=== PATIENT | male | born 1965 | race Caucasian/White ===

== ENCOUNTER 2024-02-08 18:03 | Inpatient (IN) | payer BC, SELFPAY ==
[2024-02-08 11:49] VITALS: BP 130/97
[2024-02-08] MEDS: DILAUDID 1 MG IV ×4 (12:31→19:22)
[2024-02-08] MEDS: NSS 1000 IV ×2 (12:31→16:49)
[2024-02-08 12:38] VITALS: BMI 45.6
[2024-02-08] MEDS: ZOFRAN 4 MG IV ×2 (12:48→16:57)
[2024-02-08 12:49] LABS: % Basophils 0.3 % (0-2); % Immature Granulocytes 0.7 % (0-0.5); % Monocytes 7.4 % (1.7-9.3); % Neutrophils 87.6 % (42.2-75.2); Absolute Basophils 0.1 10^3/uL (0-0.2); Absolute Immature Granulocytes 0.2 10^3/uL (0-0.05); Absolute Lymphocytes 1.2 10^3/uL (1.2-3.4); Absolute Monocytes 2.2 10^3/uL (0.1-0.6); Absolute Neutrophils 25.5 10^3/uL (1.4-6.5); Hematocrit 54.5 % (39.0-52.0); Hemoglobin 18.7 g/dL (13.0-18.0); Mean Corp Hgb Conc. 34.3 g/dL (33.0-37.0); Mean Corpuscular Hgb 26.5 pg (27.0-31.0); Mean Corpuscular Volume 77.3 fL (80.0-94.0); Mean Platelet Volume 9.4 fL (7.4-10.4); Nucleated Red Blood Cells % 0 % (-); Platelet Count 277 10^3/uL (130-400); Red Blood Cell Count 7.05 10^6/uL (4.70-6.10); Red Cell Dist. Width 15.1 % (11.5-14.5); White Blood Cell Count 29.1 10^3/uL (4.8-10.8)
[2024-02-08 13:07] LABS: ALT (SGPT) 18 U/L (0-50); AST (SGOT) 33 U/L (17-59); Albumin 4.6 g/dl (3.5-5.0); Alkaline Phosphatase 84 U/L (38-126); Blood Urea Nitrogen 22 mg/dl (9-20); Calcium 10.2 mg/dl (8.4-10.2); Carbon Dioxide 22 mmol/L (22-30); Chloride 98 mmol/L (98-107); Estimated Creatinine Clearance 105 ml/min; Glucose 189 mg/dl (70-99); Potassium 4.6 mmol/L (3.5-5.1); Sodium 131 mmol/L (135-145); Total Bilirubin 4.1 mg/dl (0.2-1.3); eGFR > 60.00
--- NOTE | 2024-02-08 13:08 | ED.GENMED ---
History of Present Illness
General
Chief Complaint: Abdominal Symptoms
Source: patient and spouse
Exam Limitations: none
Time Seen by Provider: 02/08/24 12:14
Nursing documentation reviewed up to this point in time: agreed with
Travel History
Have you had any contact with someone who has COVID-19?: No
Do you have any symptoms of coronavirus? Fever > 100 degrees, chills, cough, shortness of breath, sore throat, loss of taste or smell, muscle aches, or headache?: No
History of Present Illness
History of Present Illness:
59 yo male with h/o Migraines, NIDDM, presents with severe pain right anterior mid to lower right ribs he states started 2 days ago from frequent vomiting. Has been vomiting 4-5 times daily 2 and 3 days ago, last emesis was yesterday. Denies feeling
nauseous now. Has been unable to sleep due to the rib pain. Took Ibuprofen 800 mg 8 a.m. No relief.
Denies fever/chills, CP, SOB, abdominal pain.
Past History
Past History
ED Past Medical History: HTN and NIDDM
ED Past Surgical History: None
Social History
Tobacco: Smoker
Alcohol: None
Personal:
Living: with family
Employment: Not employed
Family History
Family History: CAD (dad @ 52. )
Review of Systems
Review of Systems
Allergies reviewed?: Yes
All Other Systems: ROS reviewed and negative except as documented in HPI and ROS
Constitutional: Denies fever or chills
Respiratory: Denies cough or trouble breathing
Cardiac: Denies chest pain
ABD/GI: Reports vomiting; Denies abdominal pain, diarrhea, constipated, bloody stools or black stools
: Denies dysuria, frequency or difficulty voiding
Musculoskeletal: Reports other (pain anterior right mid to lower ribs)
Skin: Reports no symptoms
Neurological: Reports no symptoms
Phy Exam
Physical Exam
Physical Exam:
GENERAL: Moderate distress due to rib pain, sitting on edge of bed leaning forward hands on knees. A&Ox3.
CONSTITUTIONAL: Afebrile.
EYES: Clear, conjunctivae normal
RESPIRATORY: Regular respirations, nonlabored, lungs clear.
CARDIOVASCULAR: Regular rate and rhythm, no murmurs, no rubs.
GI: Soft, nontender, normal BS
MUSCULOSKELETAL: Tender right milan-lateral mid to lower ribs. Moves with ease. Well perfused.
SKIN: Warm, dry, pink
PSYCH: Anxious mood and affect. Well kept, interactive and appropriate
NEUROLOGIC: Awake, alert and oriented. No focal neurological deficits
Course
Orders/Labs/Results
Orders:
Orders
02/08/24 12:20
Ribs, Right 3 View W/PA Chest [CR Ribs-right 3 Vw W/pa Chest*] Urgent
Comment:
Reason For Exam: pain mid to lower anterior ribs after vomiting
02/08/24 12:21
0.9% Sodium Chloride 1000 ml [Nss] 1,000 ml IV BOLUS
Ondansetron Injectable [Zofran] 4 mg IV NOW STA
02/08/24 12:22
Electrocardiogram (*1) Urgent
Reason for Study: QTc Monitoring
EKG- Treatment ONCE
HYDROmorphone [Dilaudid] 1 mg IV NOW STA
02/08/24 12:28
Complete Blood Count/With Diff Urgent
Comprehensive Metabolic Panel Urgent
02/08/24 14:15
HYDROmorphone [Dilaudid] 1 mg IV NOW STA
Lidocaine [Lidocaine 4% Patch] 1 patch TOPICAL NOW STA
02/08/24 14:22
CT Abd/pelvis W Iv Cont Urgent
Comment:
Reason For Exam: significant RUQ/right lower chest pain WBC 29.1
02/08/24 Dinner
NPO
Allow oral meds: Yes
Allow clear liquids: No
NPO with Ice Chips: No
02/08/24 15:27
D-Dimer Urgent
02/08/24 15:53
SURGICAL CONSULT Urgent
Consulting Provider: David Iverson
Was physician already notified: Yes
Reason for consult: acute cholecystitis
02/08/24 16:16
Piperacillin/Tazo 3.375 Gram [Zosyn] 3.375 gram in 50 ml IV NOW
02/08/24 16:30
0.9% Sodium Chloride 1000 ml [Nss] 1,000 ml IV 125 mls/hr
02/08/24 16:50
HYDROmorphone [Dilaudid] 1 mg IV NOW STA
Ondansetron Injectable [Zofran] 4 mg IV NOW STA
02/08/24 17:52
Admit/Transfer Patient As Directed
Co-Sign Provider:
Level of Care: Inpatient admission
Assign to:: Medical/Surgical
Physician / Group: Manisha Malin - hospitalists
Diagnosis: acute cholecystitis
Reason for Hospitalization: acute cholecystitis - IVF, IV antibiotics, surgery
Expected length of stay greater than two midnights?: Yes
ELOS- Estimated Length of Stay in days: 3
I certify the patient meets the requirements for IP care: Yes
02/08/24 17:54
Code Status As Directed
Resuscitation Status: Full Code
02/08/24 19:47
Acetaminophen [Tylenol] 650 mg PO Q4HPRN PRN
Bisacodyl [Dulcolax] 10 mg RECTAL [id number] PRN
Dextrose 50%-Water [Dextrose 50% Syringe] 12.5 grams IV [id number] PRN
Docusate W/Senna [Senokot-S] 1 tablet PO BIDPRN PRN
Glucagon [GlucaGen] 1 mg IM PRN PRN
HYDROmorphone [Dilaudid] 0.5 mg IV Q4HPRN PRN
Ondansetron Injectable [Zofran] 4 mg IV Q6HPRN PRN
Oxycodone [Roxicodone] 5 mg PO Q4HPRN PRN
Polyethylene Glycol Powder [Miralax] 17 grams PO DAILYPRN PRN
02/08/24 19:47
Activity As Directed
Activity Level: As Tolerated
Bedside Glucose Monitoring As Directed
Frequency: AC&HS
Comment: Change to q6h if pt on TPN, tube feeding or not eating
Pneumatic Compression Sleeves As Directed
Type: Knee high
Vital Signs As Directed
Frequency: Per unit guidelines
DX Deep Vein Thrombosis Video Routine
02/08/24 22:00
Trazodone [Desyrel] 150 mg PO HS
02/09/24 06:00
Complete Blood Count/With Diff IN AM
Comprehensive Metabolic Panel IN AM
Glycohemoglobin (HgbA1c) IN AM
02/09/24 07:30
Insulin Aspart Corrective Low [Novolog Flexpen-Low Resistance] See Protocol SC AC
02/09/24 08:00
Escitalopram Oxalate [Lexapro] 20 mg PO DAILY
cariprazine [Vraylar] 1.5 mg PO DAILY
02/09/24 13:00
Amphet Asp/Amphet/D-Amphet [Adderall] 7.5 mg PO DAILY@1300
02/10/24 06:00
Complete Blood Count/With Diff IN AM
Comprehensive Metabolic Panel IN AM
Abnormal Lab Results
02/08/24 02/08/24
12:28 15:27
WBC 29.1 H 10^3/uL
(4.8-10.8)
RBC 7.05 H 10^6/uL
(4.70-6.10)
Hgb 18.7 H g/dL
(13.0-18.0)
Hct 54.5 H %
(39.0-52.0)
MCV 77.3 L fL
(80.0-94.0)
MCH 26.5 L pg
(27.0-31.0)
RDW 15.1 H %
(11.5-14.5)
Abs Immat Gran (auto) 0.2 H 10^3/uL
(0-0.05)
Absolute Neuts (auto) 25.5 H 10^3/uL
(1.4-6.5)
Absolute Monos (auto) 2.2 H 10^3/uL
(0.1-0.6)
Immature Gran % 0.7 H %
(0-0.5)
Neutrophils % 87.6 H %
(42.2-75.2)
Lymphocytes % 4.0 L %
(20.5-51.1)
D-Dimer 0.53 H ug/mlFEU
(0.00-0.50)
Sodium 131 L mmol/L
(135-145)
BUN 22 H mg/dl
(9-20)
Glucose 189 H mg/dl
(70-99)
Total Bilirubin 4.1 H mg/dl
(0.2-1.3)
02/08/24 12:28
02/08/24 12:28
Vital Signs
Initial and Last Documented VS:
Initial Vital Signs
Temp Pulse Resp BP Pulse Ox
98.0 F 124 20 130/97 95
02/08/24 11:49 02/08/24 11:49 02/08/24 11:49 02/08/24 11:49 02/08/24 11:49
Last Documented Vital Signs
Temp Pulse Resp BP Pulse Ox
98.2 F 124 18 105/67 2
02/08/24 19:45 02/08/24 19:45 02/08/24 19:45 02/08/24 19:45 02/08/24 19:45
Volcanologist consulted with Physician
Volcanologist consulted with physician?: Yes
Name of Physician Consulted: Paul
MDM/Problems Addressed
Differential Diagnosis Includes:
Rib sprain/fracture
Viral GI illness, cholecystitis
MDM/Problems Addressed:
59 yo male with h/o Migraines, NIDDM, presents with severe pain right anterior mid to lower right ribs he states started 2 days ago from frequent vomiting. Has been vomiting 4-5 times daily 2 and 3 days ago, last emesis was yesterday. Denies feeling
nauseous now. Has been unable to sleep due to the rib pain. Took Ibuprofen 800 mg 8 a.m. No relief.
Denies fever/chills, CP, SOB, abdominal pain.
Moderate distress with rib pain\\
EKG: Sinus tachycardia No Q-T prolongation
1:14 PM
CBC: WBC 29.1 other abnormalities are consistent with hemoconcentration partially from dehydration. IV fluids infusing
CMP: Bilirubin 4.1. Glucose 29, BUN 22
2 PM
Patient remains in significant right side rib/upper abdominal pain. Dr. Miller and to evaluate
CXR: no obvious rib fracture or other abnormality
With clear CXR and significant Leukocytosis, US cancelled, ordered CT abd/pelvis
3:[address] abdomen pelvis radiology report reviewed: IMPRESSION:
1. CT findings questionable for cholelithiasis and acute cholecystitis in the appropriate clinical context. Consider further evaluation with dedicated ultrasound.
Hospitalist notified of admission with texting going to general surgery also
and pt informed
*Pulse Oximetry
Patient hypoxic: no
Comment: 96% RA
*Critical Care Note
Total Time (30-74mins, 75-104mins- exclusive of procedures): Not Applicable
ED Attending Note
-
Portions of this chart may have been created with voice recognition software.� Occasional wrong word or��sound alike� substitutions may have occurred due to the inherent limitations of voice recognition software.
Discharge Plan
Departure
Patient Disposition: Admit
Date of Disposition: 02/08/24
Time of Disposition: 15:50
Admit to: Med/Surg
Presentation/result/management discussed w/ accepting MD/DO: Hospitalist
Condition: Fair
Discharge Problem:
Acute cholecystitis, Diabetes mellitus, insulin dependent (IDDM), controlled
Interventions
Interventions:
*Risk Screen - Suicide Last Done: 02/08/24 19:49
*General Assessment Last Done: 02/08/24 12:44
*Neglect/Abuse Screening Last Done: 02/08/24 12:44
ED- Fall Risk Assessment Last Done: 02/08/24 12:45
*ED COVID-19 Vaccine History Last Done: 02/08/24 19:49
*Nursing Disposition Last Done: 02/08/24 19:38
NT-Amifab-Uatrbmdhqu Assessment Last Done: 02/08/24 12:46
Discharge Date and Time
Discharge Date/Time: 02/08/24 19:38
[2024-02-08] MEDS: LIDOCAINE 4% PATCH 1 PATCH TOPICAL (14:20)
[2024-02-08 15:45] LABS: D-Dimer 0.53 ug/mlFEU (0.00-0.50)
--- NOTE | 2024-02-08 16:16 | CON.GS ---
Addendum entered and electronically signed by David Iverson MD 02/09/24 08:20:
I saw and examined the patient independently.
The Bulb Sorter's note was reviewed and I agree with the note, assessment and plan except where noted below.
Comment: This is a 59-year-old male with history of diabetes, who presents with nausea vomiting which began Saturday into as well as a right upper quadrant abdominal pain. CT scan imaging concerning for acute cholecystitis. He does have
mildly elevated LFTs as well. The patient denies Fever, Chest Pain, Shortness Of Breath, changes in urinary and bowel habits, unintentional weight loss, jaundice, icterus, acolic stools.
N.p.o., IV fluids, IV Zosyn.
Will plan for laparoscopic cholecystectomy and cholangiogram in the OR today.
Risks/Benefits/Alternatives, expected postoperative course and possible complications (bleeding, infection, injury to surrounding structures, acute/chronic pain) discussed at length. Patient wishes to proceed with surgery. All questions answered.
Consent obtained.
I spent roughly 60 minutes in total for the care of this patient today including direct patient care and counseling, reviewing labs, imaging, coordination of care, as well as documentation.
Addendum entered and electronically signed by JEFFERY Smith 02/08/24 16:32:
...
Original Note:
Consultation
-
Date/Time Consultation Requested: 02/08/24 2093
Requesting Provider: Day
Performing Provider: Manuel Iverson
Reason for Consultation: acute cholecystitis
Medical History
-
Chief Complaint: nausea and vomiting
History of Present Illness:
59 yo male with h/o NIDDM and HTN who presents with nausea and vomiting which began Saturday into followed by abdominal pain in the RUQ across the epigastric area. He is overall a poor historian, at bedside to assist with history. He
denies fevers but does note he has had chills and sweats. He has been unable to keep food down and feels quite thirsty. He notes no prior episodes of pain similar to this. He is unable to recall what he ate prior to symptoms. He is restless and
notes that his pain is somewhat relieved by IV analgesics, but he is unable to find a comfortable position.
Past Medical History
Past Medical History: HTN, NIDDM and Other (neuropathy)
Past Surgical History: Other (rhinoplasty)
Social History
Tobacco: Vaping
Alcohol: None
Personal:
Living: With Family
Family History
Family History: Reviewed & Not Pertinent
Allergies / Home Medications
Allergy/AdvReac Type Severity Reaction Status Date / Time
No Known Allergies Allergy Unverified 02/08/24 11:49
�Medication �Instructions �Recorded �Confirmed �Type
amlodipine 5 mg tablet 5 mg PO DAILY 07/03/20 07/03/20 History
dextroamphetamine-amphetamine 20 22 mg PO DAILY 07/03/20 07/03/20 History
mg tablet (Adderall)
escitalopram oxalate 20 mg tablet 20 mg PO DAILY 07/03/20 07/03/20 History
gabapentin 300 mg capsule 1,800 mg PO DAILY 07/03/20 07/03/20 History
metformin 1,000 mg tablet 1,000 mg PO BID 07/03/20 07/03/20 History
trazodone 100 mg tablet 100 mg PO .NIGHTLY 07/03/20 07/03/20 History
Review of Systems
-
History Source: Patient and Family
All other systems: Negative unless noted
A 10 point review of systems was completed, and was negative except as per HPI.
Physical Exam
Vital Signs
Temp Pulse Resp BP Pulse Ox
98.0 F 124 20 130/97 95
02/08/24 11:49 02/08/24 11:49 02/08/24 11:49 02/08/24 11:49 02/08/24 11:49
02/07/24 02/08/24 02/09/24
06:59 06:59 06:59
Actual Weight 130 kg
Body Mass Index (BMI) 45.6
Lab Results
02/08/24 12:28
02/08/24 12:28
WBC 29.1 10^3/uL (4.8-10.8) H 02/08/24 12:28
Hgb 18.7 g/dL (13.0-18.0) H 02/08/24 12:28
Hct 54.5 % (39.0-52.0) H 02/08/24 12:28
Plt Count 277 10^3/uL (130-400) 02/08/24 12:
Abs Immat Gran (auto) 0.2 10^3/uL (0-0.05) H 02/08/24 12:28
Neutrophils % 87.6 % (42.2-75.2) H 02/08/24 12:28
Physical Exam
General: Pain
HEENT: Negative Moist Mucous Membranes
Respiratory: Non Labored Respirations
GI: Soft, Non Distended and Tender (RUQ tender to deep palpation)
Skin: Warm
Neuro: Awake, Alert and AO x 3
Psych: Calm
Assessment / Plan
-
59 yo diabetic male presenting with 2-3 days of RUQ pain with nausea and vomiting. Significant leukocytosis. Bilirubin elevated. Labs overall consistent with dehydration. Tachycardic but afebrile with stable BP. CT imaging reviewed and in
conjunction with exam is consistent with developing acute calculous cholecystitis.
--Keep NPO
--Start IV Zosyn
--IVF for hydration
--Tentative plan for OR in AM vs later today pending patient course
--Pain control/Antiemetics prn
--Being admitted to medicine service, diabetic management as per primary team
Case reviewed and discussed with Dr. Iverson
[2024-02-08] MEDS: ZOSYN 50 IV ×2 (16:47→22:10)
--- NOTE | 2024-02-08 17:39 | HPS.HSE ---
Family Physician
-
Family Physician: Andrea Beck
Chief Complaint
-
abd pain
History of Present Illness
59 y/o M hx of HTN, NIDDM presents to ER for n/v. He reports symptoms began Saturday into . Later he developed RUQ pain radiating across epigastric area. No fevers but noted chills/sweats. Reports poor appetite, unable to keep food down. He
reports thirst. No prior similar episodes. No chest pain, no SOB. No other complaints
In ER, unable to find comfortable position, received IV pain meds with some relief.
Medical History
Past Medical History
Past Medical History: Reports Other (HTN, NIDDM)
Past Surgical History: Reports Other (rhinoplasty)
Social History
Tobacco: Vaping
Alcohol: None
Drug: None
Personal:
Living: With Family
Family History
Family History: Not pertinent
Allergies / Home Medications
Allergies reflects when Allergies were last updated in [facility].
Home Medications with original date entered in [facility]
Allergy/Medication List:
Allergies
Allergy/AdvReac Type Severity Reaction Status Date / Time
No Known Allergies Allergy Unverified 02/08/24 11:49
Home Medications
escitalopram oxalate 20 mg tablet 20 mg PO DAILY 07/03/20
gabapentin 300 mg capsule 300 mg PO TID 07/03/20
metformin 1,000 mg tablet 1,000 mg PO BID 07/03/20
cariprazine 1.5 mg capsule (Vraylar) 1.5 mg PO DAILY 02/08/24
dextroamphetamine-amphetamine 15 mg tablet 7.5 mg PO DAILY@1300 02/08/24
dextroamphetamine-amphetamine 15 mg tablet 15 mg PO DAILY 02/08/24
glimepiride 2 mg tablet 2 mg PO DAILY 02/08/24
ibuprofen 200 mg tablet (Advil) 600 mg PO TIDPRN PRN mild pain 02/08/24
trazodone 150 mg tablet 150 mg PO HS 02/08/24
Review of Systems
-
A 12 point ROS was completed and negative except as noted: Yes
Physical Exam
Vital Signs
Vital Signs
Temp Pulse Resp BP Pulse Ox
98.0 F 124 20 130/97 95
02/08/24 11:49 02/08/24 11:49 02/08/24 11:49 02/08/24 11:49 02/08/24 11:49
Physical Exam
General: Appears in Distress and Pain
HEENT: NormoCephalic and Anicteric
Respiratory: Clear; No Wheezes or Rales
Cardiac: S1/S2 and Regular Rhythm
GI: Other (RUQ tenderness on deep palpation. no guarding)
Neuro: AO x 3
Hematologic/Lymphatic: No Lymphadenopathy
Psych: Calm
Laboratory Results
-
02/08/24 12:28
02/08/24 12:28
Laboratory Results
Total Bilirubin 4.1 mg/dl (0.2-1.3) H 02/08/24 12:28
AST 33 U/L (17-59) 02/08/24 12:28
ALT 18 U/L (0-50) 02/08/24 12:28
Alkaline Phosphatase 84 U/L (38-126) 02/08/24 12:28
Data Reviewed
-
CT Scan: Report Reviewed by me
Lab Data: Labs Reviewed by me
Impression/Plan
-
Assessment:
Early sepsis (tachycardia, leukocytosis) POA
Acute calculous cholecystitis
- CT: cholelithiasis and acute cholecystitis
- NPO/IVF
- IV Zosyn
- OR, tonight vs tomorrow per GS
- pain control, anti-emetics
NIDDM with neuropathy
- hold Metformin, Glimepiride
- resume Gabapentin post-op
- continue SSI
- check A1c
Hx of headaches (migraines)
ADD
Depression
Insomnia
- continue Lexapro/Trazodone
- continue Dextroamphetamine/amphetamine combo
- continue Vraylar
DVT ppx: SCDs
Code: Full
[2024-02-08 19:10] VITALS: BP 111/79
[2024-02-08 19:11] VITALS: BP 111/79
[2024-02-08 19:25] LABS: Glucose - Point of Care 168 mg/dl (70-99)
[2024-02-08 19:45] VITALS: BP 105/67
[2024-02-08 19:45] LABS: Urine Albumin 1+ (Neg - Trace); Urine Bilirubin 1+ (Negative); Urine Character Clear (Clear); Urine Color Brown; Urine Glucose Negative (Negative); Urine Ketone Trace (Negative); Urine Leukocyte Trace (Negative); Urine Nitrite Positive (Negative); Urine Occult Blood Negative (Negative); Urine Specific Gravity 1.015 (<1.030); Urine Urobilinogen 3+ (Neg - 1+)
[2024-02-08 19:57] LABS: Urine Red Blood Cell None Seen /HPF (0-2)
[2024-02-08 19:58] LABS: Urine White Cell 0-2 /HPF (0-5)
--- NOTE | 2024-02-08 22:15 | PTCARENOTE ---
pt new admit approx 19:45, lethargic,sleepy but arouses to loud verbal stimuli, IF infusing via L/f/a, spouse at bedside able to assist with admission, pt oriented to unit .
--- NOTE | 2024-02-08 22:17 | PTCARENOTE ---
pt sedated from meds administrated in ER, trazodone held , [id number], pt sleeping soundly.
[2024-02-08] MEDS: DILAUDID 0.5 MG IV (22:41)
[2024-02-08 22:47] LABS: Glucose - Point of Care 136 mg/dl (70-99)
[2024-02-08 23:00] VITALS: BP 128/84
[2024-02-08] MEDS: DESYREL 150 MG PO (23:00)
[2024-02-09] VITALS (35 sets, daily range): BP systolic 35–124; BP diastolic 49–94; BMI 34.9
[2024-02-09 00:13] LABS: Glucose - Point of Care 153 mg/dl (70-99)
[2024-02-09] MEDS: ROXICODONE 5 MG PO ×3 (00:43→16:36)
[2024-02-09] MEDS: NSS 1000 IV ×5 (00:49→23:21)
[2024-02-09] MEDS: ZOFRAN 4 MG IV (00:49)
[2024-02-09] MEDS: DILAUDID 0.5 MG IV ×4 (02:15→21:15)
[2024-02-09] MEDS: ZOSYN 50 IV ×4 (04:17→21:15)
[2024-02-09 05:40] LABS: % Basophils 0.3 % (0-2); % Immature Granulocytes 1.2 % (0-0.5); % Lymphocytes 6.9 % (20.5-51.1); % Monocytes 6.8 % (1.7-9.3); % Neutrophils 84.8 % (42.2-75.2); Absolute Basophils 0.1 10^3/uL (0-0.2); Absolute Immature Granulocytes 0.4 10^3/uL (0-0.05); Absolute Lymphocytes 2.3 10^3/uL (1.2-3.4); Absolute Monocytes 2.3 10^3/uL (0.1-0.6); Hematocrit 56.8 % (39.0-52.0); Hemoglobin 18.3 g/dL (13.0-18.0); Mean Corp Hgb Conc. 32.2 g/dL (33.0-37.0); Mean Corpuscular Hgb 26.3 pg (27.0-31.0); Mean Corpuscular Volume 81.6 fL (80.0-94.0); Nucleated Red Blood Cells % 0 % (-); Platelet Count 234 10^3/uL (130-400); Red Blood Cell Count 6.96 10^6/uL (4.70-6.10); Red Cell Dist. Width 15.4 % (11.5-14.5); White Blood Cell Count 34.2 10^3/uL (4.8-10.8)
[2024-02-09 06:08] LABS: ALT (SGPT) 17 U/L (0-50); AST (SGOT) 53 U/L (17-59); Alkaline Phosphatase 80 U/L (38-126); Blood Urea Nitrogen 33 mg/dl (9-20); Calcium 9.3 mg/dl (8.4-10.2); Carbon Dioxide 23 mmol/L (22-30); Chloride 95 mmol/L (98-107); Estimated Creatinine Clearance 72 ml/min; Glucose 130 mg/dl (70-99); Potassium 4.9 mmol/L (3.5-5.1); Sodium 134 mmol/L (135-145); Total Bilirubin 3.1 mg/dl (0.2-1.3); Total Protein 7.1 g/dl (6.3-8.2); eGFR 49.63
[2024-02-09 06:56] LABS: Glucose - Point of Care 130 mg/dl (70-99)
--- NOTE | 2024-02-09 08:20 | W.SUR.PREOP ---
Pre-Operative Surgical Note
-
I have examined this patient prior to the performance of the scheduled procedure.
The patient's condition is unchanged from the time of the current History and
Physical and the patient is able to undergo the scheduled procedure.
[2024-02-09] MEDS: LEXAPRO 20 MG PO (08:34)
[2024-02-09 09:00] LABS: Glycohemoglobin (HgbA1c) 6.3 % (4.0-5.6)
--- NOTE | 2024-02-09 09:05 | W.PN.HOSP.TC ---
Today's Communication/Plan
-
obtain blood cultures with rising leukocytosis
OR Today per GS
post-op diabetic diet
continue IVF and monitor BMP, urine output. Bladder scans
Assessment / Plan
Assessment / Plan
Assessment:
Early sepsis (tachycardia, leukocytosis) POA
Acute calculous cholecystitis
- CT: cholelithiasis and acute cholecystitis
- NPO/IVF
- IV Zosyn
- obtain blood cultures with increasing leukocytosis
- OR planned today
- pain control, anti-emetics
AMAN, likely driven by acute process of cholecystitis, sepsis
- continue IVF
- bladder scans
NIDDM with neuropathy
- hold Metformin, Glimepiride
- resume Gabapentin post-op
- continue SSI
- check A1c
Hx of headaches (migraines)
ADD
Depression
Insomnia
- continue Lexapro/Trazodone
- continue Dextroamphetamine/amphetamine combo
- continue Vraylar
DVT ppx: SCDs
Code: Full
Anticipated Discharge: > 48 hours
Subjective/Interval History
-
Date of Service: February 09, 2024
sitting up, appears more comfortable than yesterday
reports RUQ pain
for OR today
Objective Data
-
Labs:
Laboratory Results
02/09/24
04:52
WBC 34.2 H
Hgb 18.3 H
Hct 56.8 H
Plt Count 234
Sodium 134 L
Potassium 4.9
Chloride 95 L
Carbon Dioxide 23
BUN 33 H
Creatinine 1.6 H
Glucose 130 H
Calcium 9.3
Total Bilirubin 3.1 H
AST 53
ALT 17
Alkaline Phosphatase 80
Vital Signs:
Vital Signs
Temp Pulse Resp BP Pulse Ox
97.9 F 119 20 124/81 90
02/09/24 07:05 02/09/24 07:05 02/09/24 07:05 02/09/24 07:05 02/09/24 07:05
I&O
02/08/24 02/09/24 02/10/24
06:59 06:59 06:59
Intake Total 1475 / 1475
Output Total 600 / 600
Balance 875 / 875
Physical Exam
-
General: No Apparent Distress
HEENT: Normocephalic and Atraumatic
Respiratory: Negative Wheezes
Cardiac: Regular Rhythm and S1/S2
GI: Tender (RUQ)
Genito-urinary: No Costovertebral Tender
Neuro: AO x 3
Hematologic / Lymphatic: No Lymphadenopathy
Psych: Calm
Data Reviewed
-
Total Time Spent with Patient (in minutes): 42
Labs: Labs Reviewed by me
[2024-02-09 09:34] LABS: Glucose - Point of Care 129 mg/dl (70-99)
--- NOTE | 2024-02-09 10:19 | PTCARENOTE ---
Pt instructed on plan of care, along with what to expect pre and post operatively. Pt verbalized understanding of plan and instructions.
--- NOTE | 2024-02-09 10:25 | PTCARENOTE ---
Pt angry and hollering out. Pain medication administered as ordered. Pt vocally argumentative with his , mother and staff. Pt's Mother attempted to help Pt with his IV tubing to get around the bed and Pt aggressively pushed her aside. Will
monitor closely for any escalation of behavior and medicate as needed and safe for pain. Pt currently sitting back in bed, call chinchilla is within reach.
--- NOTE | 2024-02-09 14:18 | W.IMMPOSTOP ---
Surgical Immed Post Op Note
-
Primary Surgeon: David Iverson MD
Assisting Surgeon: None
Pre-op Diagnosis: Acute cholecystitis
Post-op Diagnosis: Gangrenous cholecystitis
Procedure Performed: Laparoscopic cholecystectomy with cholangiogram
Anesthesia Type: General
Specimen / Cultures: Gallbladder
Estimated Blood Loss: 23 cc
Complications: None
Operative Findings: After successful Veress entry, we identified a perforated, gangrenous gallbladder with bile in the right upper quadrant and multi patchy areas of necrosis along the anterior gallbladder wall. After lysing omental adhesions off
of the gallbladder wall the gallbladder was intentionally perforated and drained of thick black bile with a couple of yellow cholesterol stones noted and removed. There we were able to identify the infundibulum fairly quickly, it was readily
apparent we would not be able to identify the structures in the triangle of Calot so a top-down subtotal cholecystectomy was performed leaving the back wall of the gallbladder on the fossa. This was carried down to the infundibulum and the presumed
cystic duct. The cystic artery was identified and ligated with the LigaSure. We then able to identify duct like structure and circumferentially dissected free. Cystic duct was identified and a ductotomy was made. Cholangiogram was performed
which demonstrated no filling defects and normal biliary anatomy. Cystic duct was ligated with a 0 PDS Endoloop. The anterior plate of the gallbladder as well as the remnant of the cystic duct was placed in Endo Catch bag and removed. Right upper
quadrant was generously irrigated with saline until clear. A 19 [place] round Quang drain was placed in the right upper quadrant through the right lateralmost port and secured to the skin with a 2-0 nylon stitch. Miller was placed at the end of the
case.
POST OP PLAN:
Imaging: None
Labs: A.m. CBC and CMP
Diet: Clears for today, at risk for developing an ileus.
Analgesia: Tylenol 650mg q6 Tammi, Stephanie 5mg q6 PRN, Dilaudid 0.5mg q2h PRN
Neuro/vascular checks: q4h
AC/AP: Hold Therapeutic AC, Ok for DVT PPx
Activity: Ad Larisa
Wound/Incisions/Drains: Routine. Drain to bulb suction. Miller to gravity.
Abx: Zosyn for now, specimen sent for path and tissue culture. 4 days of antibiotics on discharge.
Dispo: ICU given intraoperative hypotension.
[2024-02-09 14:24] LABS: Glucose - Point of Care 116 mg/dl (70-99)
--- NOTE | 2024-02-09 14:49 | CON.INTV ---
Consultation
Consultation Request
Date/Time Consultation Requested: 02/09/24
Date/Time Consultation Performed: 02/09/24
Reason for Consultation: Critical care
Medical History
-
History of Present Illness:
History obtained from chart as patient with still waking up from Anesthesia PACU. 59-year-old male with history of diabetes, hypertension presents on 02/07 with 2 days of right upper quadrant pain, emesis. Per ER records, denies shortness of
breath, chest pain, fevers. Upon arrival, afebrile, pulse 124, breathing at 20, blood pressure 130/97, 95%. White count elevated at 29.1. Patient received IV fluids. Total bilirubin 4.1. CT abdomen suggested acute cholecystitis. Patient was
seen by surgery. Patient was treated with IV Zosyn/IV fluids therapy. He underwent laparoscopic cholecystectomy with cholangiogram was found to have gangrenous cholecystitis. Right upper quadrant was irrigated until clear. Patient being admitted
to ICU for further management. Quang drain was kept in place.
I reviewed outpatient records. Patient had been complaining of progressive lower extremity edema, insomnia
.
PMH: Diabetes, hypertension, ADHD, insomnia, hypercholesterolemia. History of major depressive disorder, polycythemia with polyclonal gammopathy, abnormal liver function
Past Medical History
Past Medical History: None (See above)
Past Surgical History: None (See above)
Social History
Tobacco: Former Smoker (Quit 2022. Possibly 20+ pack-year history)
Alcohol: None
Drug: Marijuana (yes per records)
Personal:
Living: With Family
Family History
Family History: Other (Father with heart disease)
Allergies / Home Medications
Allergies
Allergy/AdvReac Type Severity Reaction Status Date / Time
No Known Allergies Allergy Unverified 02/08/24 11:49
Home Medications
�Medication �Instructions �Recorded �Confirmed �Last Taken �Type
escitalopram oxalate 20 mg tablet 20 mg PO DAILY 07/03/20 02/08/24 02/08/24 History
gabapentin 300 mg capsule 300 mg PO TID 07/03/20 02/08/24 02/08/24 History
metformin 1,000 mg tablet 1,000 mg PO BID 07/03/20 02/08/24 02/08/24 History
cariprazine 1.5 mg capsule 1.5 mg PO DAILY 02/08/24 02/08/24 02/08/24 History
(Vraylar)
dextroamphetamine-amphetamine 15 7.5 mg PO DAILY@1300 02/08/24 02/08/24 4 Days Ago History
mg tablet ~02/04/24
dextroamphetamine-amphetamine 15 15 mg PO DAILY 02/08/24 02/08/24 4 Days Ago History
mg tablet ~02/04/24
glimepiride 2 mg tablet 2 mg PO DAILY 02/08/24 02/08/24 02/08/24 History
ibuprofen 200 mg tablet (Advil) 600 mg PO TIDPRN PRN mild pain 02/08/24 02/08/24 02/08/24 History
1000 mg
trazodone 150 mg tablet 150 mg PO HS 02/08/24 02/08/24 02/07/24 History
Review of Systems
-
Unable to Obtain full review of systems at this time due to: Acuity
Vitals / Labs / Diagnostic Testing
Vital Signs
Temp Pulse Resp BP Pulse Ox
97.9 F 108 13 89/73 100
02/09/24 07:05 02/09/24 14:30 02/09/24 14:30 02/09/24 14:30 02/09/24 14:30
Lab Data
02/09/24 04:52
02/09/24 04:52
Diagnostic Testing:
Physical Exam
-
HEENT: Normocephalic
Cardiovascular: S1/S2, Regular Rhythm, Murmur (n), Rub (n), Peripheral Edema (n), Other (DEMETRIA drain in place) and Other (Sequentials in place)
Respiratory: Wheeze (n), Rales (n), Rhonchi (n) and Non-Labored Respirations
GI: Soft, Distended and Non Tender
Neurology: Other (Lethargic, waking up from anesthesia)
Assessment
-
59-year-old male with history of diabetes, hypertension presents with few days of nausea, right upper quadrant pain, found to have acute cholecystitis per imaging. Admitted 02/07 treated with IV fluids, IV Zosyn. Underwent laparoscopic
cholecystectomy 02/08 found to have gangrenous cholecystitis. Patient being admitted to ICU postoperatively
Acute cholecystitis
Gangrenous, status post laparoscopic cholecystectomy 02/09/24
Leukocytosis
Acute renal insufficiency, creatinine 1.6
Admission creatinine 1.1
Hyperglycemia
Polycythemia
Elevated total bilirubin 4.1
Mildly elevated right hemidiaphragm
Conditions present prior to admission
Hypertension/hypercholesterolemia
History of diabetes
History of ADHD
Suspected sleep apnea
History of insomnia
20+ pack-year history of smoking, quit
Plan/recommendations
Evaluated patient in the PACU
At this time, patient is critically ill
Unclear how much fluid he received preoperatively. Per anesthesia, has received 2 L intraoperatively, third liter hanging in the PACU
Systolic pressure 80s to 90s
Warmer in place
Patient is still waking up from anesthesia
Moving forward
Continue IV fluids, additional bolus normal saline
Norepinephrine as needed, maintain maps greater than [address], follow urine output
Creatinine 1.6
Repeat BMP later today
Patient with history of diabetes.
Sliding scale for now anticipating n.p.o. status
Follow blood sugars
Remains on Zosyn therapy
Blood cultures obtained earlier this morning, urine culture pending
reviewed postoperative correspondence, abdominal irrigation completed, clear
EKG, chest x-ray upon arrival to ICU
DVT prophylaxis: Subcutaneous heparin
GI prophylaxis: Not indicated at this time, will follow
Reviewed with PACU nursing, critical care nursing, primary service
TCCT 35 min
--- NOTE | 2024-02-09 15:18 | CM ---
Attempted bedside visit to complete IA
Off unit for procedure
[2024-02-09 17:09] LABS: APTT 38.7 Sec (23.4-35.0); INR 2.19; PT 24.2 Sec (11.4-14.6)
--- NOTE | 2024-02-09 18:11 | PTCARENOTE ---
Received patient post op from PACU team. Patient awake alert oriented, minimal pain to report at this time, was medicated in pacu and in iCU. Tolerates po intake.. accu check post 116. 4lpm n/c saturation 97%. Initiate incentive spirometer, cough
deep breath exercises. IVF, ABX and medications via Emar. Follow up assessment and vital signs as per unit based protocol. Update events and plan of cares with patient and family.Dr Shay at bedside. Updated plan of cares, discuss bipap and follow
up pulmonary toilet needs,incentive and BiPap. Continue rounds and follow up assessment trends.
[2024-02-09] MEDS: OFIRMEV 100 IV (19:48)
--- NOTE | 2024-02-09 20:00 | PTCARENOTE ---
Rec'd pt asleep, easily arousable, follows commands, needs a lot of encouragement to move & do IS; ofirmiv 1 gm IV given for incis pain, SR w/ PVC's, bp stable, weak distal pulses, skin warm/dry, o2 2 liters nc, lungs coarse & decr in bases, reaches
2000 on IS, sleep apnea observed, hypo bowel sounds, abd obese, tender to palpation, lap shaista sites intact w/ surgical adhesive, R DEMETRIA draining black liquid, ирина sips h20, no n/v, marina draining sloan urine
--- NOTE | 2024-02-09 21:00 | PTCARENOTE ---
pt climbed oob, instructed to call nurse when needs anything & not to get oob, bed alarm on
--- NOTE | 2024-02-09 21:10 | PTCARENOTE ---
1 liter nss hung over 1hr for low bp per order, dilaudid 0.5 mg iv given for pain
[2024-02-09] MEDS: DESYREL 150 MG PO (21:14)
[2024-02-09 21:54] LABS: Glucose - Point of Care 135 mg/dl (70-99)
--- NOTE | 2024-02-09 23:26 | PTCARENOTE ---
sys reviewed, changes noted, refused to wear BIPAP at this time
[2024-02-10] VITALS (22 sets, daily range): BP systolic 96–134; BP diastolic 67–94; BMI 35.3
[2024-02-10] MEDS: DILAUDID 0.5 MG IV ×3 (03:20→13:11)
--- NOTE | 2024-02-10 03:20 | PTCARENOTE ---
sys reviewed, dilaudid 0.5 mg iv given for pain, CHG bath done, linens changed
[2024-02-10] MEDS: ZOSYN 50 IV ×4 (03:21→21:34)
[2024-02-10 03:48] LABS: % Basophils 0.1 % (0-2); % Immature Granulocytes 0.6 % (0-0.5); % Lymphocytes 6.6 % (20.5-51.1); % Monocytes 6.2 % (1.7-9.3); % Neutrophils 86.5 % (42.2-75.2); Absolute Immature Granulocytes 0.1 10^3/uL (0-0.05); Absolute Lymphocytes 1.4 10^3/uL (1.2-3.4); Absolute Monocytes 1.3 10^3/uL (0.1-0.6); Absolute Neutrophils 18.6 10^3/uL (1.4-6.5); Hematocrit 51.9 % (39.0-52.0); Hemoglobin 16.4 g/dL (13.0-18.0); Mean Corp Hgb Conc. 31.6 g/dL (33.0-37.0); Mean Corpuscular Hgb 26.1 pg (27.0-31.0); Mean Corpuscular Volume 82.6 fL (80.0-94.0); Mean Platelet Volume 10.8 fL (7.4-10.4); Nucleated Red Blood Cells % 0 % (-); Platelet Count 213 10^3/uL (130-400); Red Blood Cell Count 6.28 10^6/uL (4.70-6.10); Red Cell Dist. Width 14.8 % (11.5-14.5); White Blood Cell Count 21.5 10^3/uL (4.8-10.8)
[2024-02-10 04:15] LABS: ALT (SGPT) 23 U/L (0-50); AST (SGOT) 44 U/L (17-59); Albumin 3.3 g/dl (3.5-5.0); Alkaline Phosphatase 79 U/L (38-126); Blood Urea Nitrogen 36 mg/dl (9-20); Calcium 8.5 mg/dl (8.4-10.2); Carbon Dioxide 20 mmol/L (22-30); Chloride 101 mmol/L (98-107); Estimated Creatinine Clearance 102 ml/min; Glucose 143 mg/dl (70-99); Magnesium 2.2 mg/dl (1.6-2.3); Phosphorus 4.3 mg/dl (2.5-4.5); Potassium 4.8 mmol/L (3.5-5.1); Sodium 130 mmol/L (135-145); Total Bilirubin 1.6 mg/dl (0.2-1.3); Total Protein 6.2 g/dl (6.3-8.2); eGFR > 60.00
--- NOTE | 2024-02-10 07:27 | W.PN.INTV ---
Documented by User: Doyle Weaver MD 02/10/24 17:21
Today's Communication / Plan
Recommendations
Atbs
Postop care
Reconsult prn
Assessment
-
59-year-old male with history of diabetes, hypertension presents with few days of nausea, right upper quadrant pain, found to have acute cholecystitis per imaging. Admitted 02/07 treated with IV fluids, IV Zosyn. Underwent laparoscopic
cholecystectomy 02/08 found to have gangrenous cholecystitis. Patient being admitted to ICU postoperatively
Acute cholecystitis
Gangrenous, status post laparoscopic cholecystectomy 02/09/24
Leukocytosis
Acute renal insufficiency, creatinine 1.6
Admission creatinine 1.1
Hyperglycemia
Polycythemia
Elevated total bilirubin 4.1
Mildly elevated right hemidiaphragm
Conditions present prior to admission
Hypertension/hypercholesterolemia
History of diabetes
History of ADHD
Suspected sleep apnea
History of insomnia
20+ pack-year history of smoking, quit
Plan/recommendations
Off NE
IVFs: NSS
Recovering well postop
D/w surgical team
Remains on Zosyn therapy
GB tissue cx pending
Blood cultures NTD
Urine culture negative
Miller catheter in place, follow urine output
Creatinine 1.6
Patient with history of diabetes.
Sliding scale for now anticipating n.p.o. status
Follow blood sugars
DVT prophylaxis: Subcutaneous heparin
GI prophylaxis: Not indicated at this time, will follow
Stable for transfer to medsx floor
Will sign off, reconsult as needed
ATTENDING PHYSICIAN ATTESTATION:
(Follow-up Visit:)
I personally saw and evaluated the patient along with the Resident Dr Lee.
Discussed with Resident and discussed in rounds with MDT.
I agree with Resident�s findings and plan as documented in the resident�s note, which was edited by myself.
Reconsult as needed
Subjective Dataa
Subjective Data
Date of Service:
Date of Service: February 10, 2024
Subjective:
No major events reported overnight
Postop period improving
Patient received several IV Dilaudid overnight for abdominal pain. Also received oxycodone and Dilaudid earlier this morning with moderate pain relief.
D/w Surgery at bedside
Review of Systems
General: Fever (n) and Satisfactory Appetite
HEENT: Dysphagia
Cardiopulmonary: Dyspnea (n) and Cough
GI: Abdominal Pain
Neuro: Weakness
Objective Data
Data Reviewed
Vital Signs / I&O / Oxygen:
Vital Signs
Temp Pulse Resp BP Pulse Ox
98 F 101 12 119/94 98
02/10/24 04:00 02/10/24 06:00 02/10/24 06:00 02/10/24 06:00 02/10/24 06:00
Intake and Output
02/09/24 02/10/24 02/11/24
06:59 06:59 06:59
Intake Total 1475 / 1475 4240 / 4240
Output Total 600 / 600 1665 / 1665
Balance 875 / 875 2575 / 2575
SaO2 98
Nasal Cannula flow liters per 2
minute
Physical Exam
General: Comfortable
HEENT: Normocephalic and Moist Mucous Membranes
Cardiovascular: Regular Rhythm, Murmur (n), Peripheral Edema (n) and Calf Tenderness (n)
Respiratory: Clear, Non-Labored Respirations and Stridor (n)
GI: Soft, Non Distended and Tender
Neurology: Awake, Oriented and No Motor Deficits
Skin: Warm
Labs/Micro/Reports
Lab Data
02/10/24 03:29
02/10/24 03:29
Laboratory Results
02/09/24
16:49
PT 24.2 H
INR 2.19
APTT 38.7 H

Documented by User: Sg Lee MD, Resident 02/10/24 17:21
Subjective Dataa
Subjective Data
Subjective:
Patient received several IV Dilaudid overnight for abdominal pain. Also received oxycodone and Dilaudid earlier this morning with moderate pain relief. Patient has been transferred to the floor.
[2024-02-10 08:03] LABS: Glucose - Point of Care 143 mg/dl (70-99)
[2024-02-10] MEDS: ROXICODONE 5 MG PO ×2 (08:08→18:29)
[2024-02-10] MEDS: LEXAPRO 20 MG PO (08:09)
[2024-02-10] MEDS: NSS 1000 IV ×2 (08:17→18:26)
--- NOTE | 2024-02-10 08:59 | W.PN.GS2 ---
Addendum entered and electronically signed by David Iverson MD 02/17/24 11:44:
Delayed entry note from 02/10/2024.
I saw and examined the patient independently.
The E/M Engineer's note was reviewed and I agree with the note, assessment and plan except where noted below.
Comment: 59-year-old male with a history of diabetes presents with acute cholecystitis and peritonitis now postoperative day 1 lap shaista with necrotic perforated gallbladder. Doing well, expected postoperative course.
Advance diet, DC Marina.
Continue antibiotics and DEMETRIA drain.
Original Note:
Today's Communication / Plan
-
Advance diet and d/c marina
Assessment / Plan
-
59 yo DM male presenting with ACC now POD #1 lap shaista with necrotic perforated gallbladder noted intraop.
DEMETRIA left in place post operatively with expected bilious outputs given operative findings. Very low suspicion for active bile leak.
ICU post op for management of sepsis. Now resolved.
AFVSS, mild tachycardia persists. Hypotension resolved with IVF boluses
Leukocytosis present but trending down
LFT's WNL
AMAN likely prerenal, much improved/resolved with IVF
Tolerating clears
--Advance to regular diet
--Continue DEMETRIA drain
--Continue ABX
--D/c Marina
--medical management as per primary team, ok for transfer out of ICU from surgical standpoint
Subjective Data
-
Date of Service: February 10, 2024
Patient seen and examined at bedside with Dr. Iverson. Discussed case with ICU team in morning rounds. Patient reports RUQ discomfort. Denies n/v. Passing flatus.
Objective Data
-
Intake and Output
02/09/24 02/10/24 02/11/24
06:59 06:59 06:59
Intake Total 1475 / 1475 4240 / 4240
Output Total 600 / 600 1665 / 1665
Balance 875 / 875 2575 / 2575
Intake:
Oral fluids 290 / 290
IV fluids (Total) 1375 / 1375 3700 / 3700
Normosol 700 / 700
Nss 1,000 ml @ 125 mls/hr IV . 1999
Q8H [facility] Rx#:[id number]
nss bolus 1000 / 1000
IV piggybacks 100 / 100 250 / 250
Output:
Drain Output (Total) 315 / 315
Right Lower Abdomen Tono- 315 / 315
Michael
Urine, Marina 1350 / 1350
Urine, Voided 600 / 600
Vital Signs
Temp Pulse Resp BP Pulse Ox
97.7 F 101 12 119/94 98
02/10/24 08:05 02/10/24 06:00 02/10/24 06:00 02/10/24 06:00 02/10/24 06:00
Lab Results
02/10/24 03:29
02/10/24 03:29
Calcium 8.5 mg/dl (8.4-10.2) 02/10/24 03:29
Phosphorus 4.3 mg/dl (2.5-4.5) 02/10/24 03:29
Magnesium 2.2 mg/dl (1.6-2.3) 02/10/24 03:29
Total Bilirubin 1.6 mg/dl (0.2-1.3) H D 02/10/24 03:29
AST 44 U/L (17-59) 02/10/24 03:29
ALT 23 U/L (0-50) 02/10/24 03:29
Alkaline Phosphatase 79 U/L (38-126) 02/10/24 03:29
Total Protein 6.2 g/dl (6.3-8.2) L 02/10/24 03:29
Albumin 3.3 g/dl (3.5-5.0) L 04/15/24 03:29
Physical Exam
-
NAD
ABD soft, mild tenderness to RUQ and incisions, COLOR PASTE MIXER, ND
Incisions well approximated with intact glue, DEMETRIA with bilious output noted
--- NOTE | 2024-02-10 09:34 | W.PN.HOSP.TC ---
Today's Communication/Plan
-
resume diabetes meds
continue IVF, regular diet
continue drain
continue IV Abx
transfer 2 S
Assessment / Plan
Assessment / Plan
Assessment:
Early sepsis (tachycardia, leukocytosis) POA
Acute calculous cholecystitis
- CT: cholelithiasis and acute cholecystitis
- s/p lap shaista with necrotic perforated gallbladder noted intraop 02/08
- DEMETRIA in place
- spent 24 hours in ICU for hypotension; now resolved
- continue IVF
- regular diet
- IV Zosyn pending cultures
- pain control, anti-emetics
AMAN, likely driven by acute process of cholecystitis, sepsis
Hyponatremia
- continue IVF
- bladder scans
NIDDM with neuropathy
- resume Metformin, Glimepiride
- resume Gabapentin
- continue SSI
- A1c 6.3%
Hx of headaches (migraines)
ADD
Depression
Insomnia
- continue Lexapro/Trazodone
- continue Dextroamphetamine/amphetamine combo
- continue Vraylar
DVT ppx: SCDs
Code: Full
Total Critical Care Time 39 minutes. I was immediately available to the patient and staff. I personally examined, reviewed labs, diagnostic images/reports, interpretations, treatment plans, discussed patient care with other providers and family
or caregivers (if patient is unable to make decisions), entered orders as appropriate and documented the medical record.
Anticipated Discharge: 24 - 48 hours
Subjective/Interval History
-
Date of Service: February 10, 2024
feels improved, pain persists
Objective Data
-
Labs:
Laboratory Results
02/10/24
03:29
WBC 21.5 H
Hgb 16.4
Hct 51.9
Plt Count 213
Sodium 130 L
Potassium 4.8
Chloride 101
Carbon Dioxide 20 L
BUN 36 H
Creatinine 1.1
Glucose 143 H
Calcium 8.5
Total Bilirubin 1.6 H D
AST 44
ALT 23
Alkaline Phosphatase 79
Vital Signs:
Vital Signs
Temp Pulse Resp BP Pulse Ox
97.7 F 101 12 119/94 98
02/10/24 08:05 02/10/24 06:00 02/10/24 06:00 02/10/24 06:00 02/10/24 06:00
I&O
02/09/24 02/10/24 02/11/24
06:59 06:59 06:59
Intake Total 1475 / 1475 4240 / 4240
Output Total 600 / 600 1665 / 1665
Balance 875 / 875 2575 / 2575
Physical Exam
-
General: No Apparent Distress
HEENT: Normocephalic and Atraumatic
Respiratory: Negative Wheezes or Rales
Cardiac: Regular Rhythm and S1/S2
GI: Soft and Tender (incisional)
Genito-urinary: No Costovertebral Tender
Neuro: AO x 3
Hematologic / Lymphatic: No Lymphadenopathy
Psych: Calm
Data Reviewed
-
Critical Care Time (in minutes): 39
Labs: Labs Reviewed by me
--- NOTE | 2024-02-10 10:35 | PTCARENOTE ---
Received pt awake and alert. Speech is appropriate.+WILLIAM.c/o severe abdominal pain.Medicated with Oxycodone with no relief, and Dilaudid with moderate relief.1020-Assisted oob to chair with 1 person minimal assist.ST noted.IVF infusing.Decreased
breath sounds bibasilar.POX 95% on RA.Appetite poor.Refused breakfast.Encouraged to eat.No BM.Miller discontinued at 1020.Abdominal incisions intact with adhesive.DEMETRIA draining bilious fluid.Plan of care discussed with pt.
[2024-02-10] MEDS: AMARYL PO (11:44)
[2024-02-10] MEDS: ADDERALL 15 MG PO (11:48)
[2024-02-10] MEDS: GLUCOPHAGE 1000 MG PO ×2 (11:49→16:56)
[2024-02-10 11:56] LABS: Glucose - Point of Care 147 mg/dl (70-99)
--- NOTE | 2024-02-10 14:26 | PTCARENOTE ---
Received patient from ICU around 1330 via wheelchair. Patient and family oriented to room. VS stable. Patient on tele with Sinus Tach. IV fluids NS at 125ml/hr infusing. DEMETRIA found to be without bulb. Chayo SANTOS made aware and came to room and
reconnected bulb to existing DEMETRIA tubing. Patient stated he voided in the BR around 1345 but did not go in the urinal so was not measurable. Instructed patient to void in the urinal to measure amount urinated s/p catheter removal. Call chinchilla in reach.
[2024-02-10] MEDS: NON-FORMULARY ITEM 1.5 MG PO (16:56)
[2024-02-10] MEDS: NEURONTIN 300 MG PO ×2 (16:56→21:26)
[2024-02-10 17:12] LABS: Glucose - Point of Care 129 mg/dl (70-99)
--- NOTE | 2024-02-10 17:14 | CM ---
kennel manager dog track reviewed patient's chart and met with patient and spouse at bedside, patient lives with his spouse in a 2 story home, patient is independent with adl's and ambulation, no dme, patient drives, patient has a prescription plan and uses
[facility] pharmacy.
PCP: Dr. Beck
Plan; Home with VN, [facility] liaison contacted.
--- NOTE | 2024-02-10 20:56 | RESPNOTE ---
Patient is declining to wear BIPAP QHS for later tonight
[2024-02-10] MEDS: DESYREL 150 MG PO (21:33)
[2024-02-10 21:36] LABS: Glucose - Point of Care 132 mg/dl (70-99)
[2024-02-11] VITALS (7 sets, daily range): BP systolic 107–156; BP diastolic 81–115
[2024-02-11] MEDS: NSS 1000 IV ×2 (01:56→12:37)
[2024-02-11] MEDS: ZOSYN 50 IV ×4 (03:21→21:32)
[2024-02-11 05:29] LABS: % Basophils 0.1 % (0-2); % Eosinophils 0.1 % (0-6); % Immature Granulocytes 0.5 % (0-0.5); % Lymphocytes 10.2 % (20.5-51.1); % Monocytes 5.3 % (1.7-9.3); % Neutrophils 83.8 % (42.2-75.2); Absolute Immature Granulocytes 0.1 10^3/uL (0-0.05); Absolute Neutrophils 16.3 10^3/uL (1.4-6.5); Hematocrit 48.3 % (39.0-52.0); Hemoglobin 15.5 g/dL (13.0-18.0); Mean Corp Hgb Conc. 32.1 g/dL (33.0-37.0); Mean Corpuscular Hgb 26.5 pg (27.0-31.0); Mean Corpuscular Volume 82.7 fL (80.0-94.0); Mean Platelet Volume 10.3 fL (7.4-10.4); Nucleated Red Blood Cells % 0 % (-); Platelet Count 249 10^3/uL (130-400); Red Blood Cell Count 5.84 10^6/uL (4.70-6.10); Red Cell Dist. Width 14.4 % (11.5-14.5); White Blood Cell Count 19.5 10^3/uL (4.8-10.8)
[2024-02-11 06:02] LABS: ALT (SGPT) 20 U/L (0-50); AST (SGOT) 25 U/L (17-59); Albumin 2.9 g/dl (3.5-5.0); Alkaline Phosphatase 93 U/L (38-126); Blood Urea Nitrogen 30 mg/dl (9-20); Calcium 8.7 mg/dl (8.4-10.2); Carbon Dioxide 22 mmol/L (22-30); Chloride 102 mmol/L (98-107); Estimated Creatinine Clearance > 125 ml/min; Glucose 146 mg/dl (70-99); Potassium 4.6 mmol/L (3.5-5.1); Sodium 130 mmol/L (135-145); Total Bilirubin 1.2 mg/dl (0.2-1.3); Total Protein 5.7 g/dl (6.3-8.2); eGFR > 60.00
--- NOTE | 2024-02-11 07:35 | W.PN.GS2 ---
Today's Communication / Plan
-
--Advance to diabetic diet
--Continue ABX, tend CBC
--CXR and pulm management per Hospitalist
--PPI for GI
--Lovenox for DVT
Assessment / Plan
-
59 yo DM male presenting with ACC now POD #2 lap shaista with necrotic perforated gallbladder noted intraop.
AFVSS, mild tachycardia persists. Hypotension resolved with IVF boluses.
Leukocytosis present but trending down
LFT's WNL
AMAN likely prerenal, much improved/resolved with IVF
Tolerating diabetic diet
DMEETRIA left in place post operatively with expected bilious outputs on POD#1 given operative findings. Currently non-bilious.
Concern for pulmonary edema based on CXR from 02/08, reports of SOB and supplemental O2 needs
--Advance to diabetic diet
--Continue DEMETRIA drain
--Continue ABX, tend CBC
--CXR and pulm management per Hospitalist
--PPI for GI
--Lovenox for DVT
Subjective Data
-
Date of Service: February 11, 2024
Reports abdominal incisional soreness. Reports shortness of breath after going to the bathroom. No nausea or vomiting. Reports passing flatus and a small or black stool. Voiding. Minimal ambulation.
Objective Data
-
Intake and Output
02/10/24 02/11/24 02/12/24
06:59 06:59 06:59
Intake Total 4240 / 4365 2074
Output Total 1665 / 1665 770 / 770
Balance 2575 / 2700 1305 / 1305
Intake:
Oral fluids 290 / 290 1200 / 1200
IV fluids (Total) 3700 / 3825 875 / 875
Normosol 700 / 700
Nss 1,000 ml @ 125 mls/hr IV . 1999 875 / 875
Q8H [facility] Rx#:[id number]
nss bolus 1000 / 1000
IV piggybacks 250 / 250
Output:
Drain Output (Total) 315 / 315 120 / 120
Right Lower Abdomen Tono- 315 / 315 120 / 120
Michael
Urine, Miller 1350 / 1350 350 / 350
Urine, Voided 300 / 300
Other:
Number of approximated SMALL 1
amounts of urine
Number of approximated MODERATE 2
amounts of urine
Vital Signs
Temp Pulse Resp BP Pulse Ox
97.5 F 98 16 120/88 96
02/11/24 03:35 02/11/24 03:35 02/11/24 03:35 02/11/24 03:35 02/11/24 03:35
Lab Results
02/11/24 05:00
02/11/24 05:00
Calcium 8.7 mg/dl (8.4-10.2) 02/11/24 05:00
Phosphorus 4.3 mg/dl (2.5-4.5) 02/10/24 03:29
Magnesium 2.2 mg/dl (1.6-2.3) 02/10/24 03:29
Total Bilirubin 1.2 mg/dl (0.2-1.3) 02/11/24 05:00
AST 25 U/L (17-59) 02/11/24 05:00
ALT 20 U/L (0-50) 02/11/24 05:00
Alkaline Phosphatase 93 U/L (38-126) 02/11/24 05:00
Total Protein 5.7 g/dl (6.3-8.2) L 02/11/24 05:00
Albumin 2.9 g/dl (3.5-5.0) L 02/11/24 05:00
Physical Exam
-
Gen: NAD
Abd: obese, soft, mild tenderness, non-peritoneal, incisions c/d/i - no erythema, ecchymosis or drainage, DEMETRIA non-bilious, serosang, striped at bedside
[2024-02-11 08:01] LABS: Glucose - Point of Care 146 mg/dl (70-99)
[2024-02-11] MEDS: ROXICODONE 5 MG PO ×3 (08:11→21:31)
[2024-02-11] MEDS: NEURONTIN 300 MG PO ×3 (08:11→21:32)
[2024-02-11] MEDS: NON-FORMULARY ITEM 1.5 MG PO (08:11)
[2024-02-11] MEDS: AMARYL 2 MG PO (08:11)
[2024-02-11] MEDS: LEXAPRO 20 MG PO (08:11)
[2024-02-11] MEDS: GLUCOPHAGE 1000 MG PO ×2 (08:11→17:49)
[2024-02-11] MEDS: ADDERALL 15 MG PO (08:18)
[2024-02-11] MEDS: PROTONIX 40 MG PO (08:21)
[2024-02-11 12:37] LABS: Glucose - Point of Care 130 mg/dl (70-99)
--- NOTE | 2024-02-11 13:07 | VNURNOTE ---
Home Health Liaison met with patient and family members at 1130 to discuss [facility] nurse/therapy, visits, schedule and homebound status. Patient is agreeable and understands that visits at home will be 2-3 x per week to assess and teach medical
management and drain care. Patient's is able to assist with drain care.
[facility] brochure provided with contact information. Patient is aware that [facility] will contact him for start of care in 1-2 days after discharge from .
[facility] referral completed in Care Port.
--- NOTE | 2024-02-11 13:09 | CM ---
Reviewed the chart notes and spoke with the patient at the bedside. The patient anticipates being discharged with DEMETRIA drain on VN. Referral sent. CM continues to be available to patient/family and is monitoring medical plan for needs at
discharge.
Plan: Discharge to home when medically stable with [facility] services.
--- NOTE | 2024-02-11 13:12 | W.PN.HOSP.TC ---
Today's Communication/Plan
-
stop IVF
continue Abx
Assessment / Plan
Assessment / Plan
Assessment:
Early sepsis (tachycardia, leukocytosis) POA
Acute calculous cholecystitis
- CT: cholelithiasis and acute cholecystitis
- s/p lap shaista with necrotic perforated gallbladder noted intraop 02/08
- DEMETRIA in place
- continue regular diet
- IV Zosyn, day 3
- pain control, anti-emetics
Acute hypoxic respiratory insufficiency
- wean O2
- likely atelectasis
- no evidence of CHF
AMAN, likely driven by acute process of cholecystitis, sepsis
Hyponatremia
- cap IVF
- bladder scans
NIDDM with neuropathy
- resume Metformin, Glimepiride
- resume Gabapentin
- continue SSI
- A1c 6.3%
Hx of headaches (migraines)
ADD
Depression
Insomnia
- continue Lexapro/Trazodone
- continue Dextroamphetamine/amphetamine combo
- continue Vraylar
DVT ppx: SCDs
Code: Full
Anticipated Discharge: Within 24 hours
Subjective/Interval History
-
Date of Service: February 11, 2024
denies any SOB or CP
no fevers/chills
not on O2 anymore
Objective Data
-
Labs:
Laboratory Results
02/11/24
05:00
WBC 19.5 H
Hgb 15.5
Hct 48.3
Plt Count 249
Sodium 130 L
Potassium 4.6
Chloride 102
Carbon Dioxide 22
BUN 30 H
Creatinine 0.9
Glucose 146 H
Calcium 8.7
Total Bilirubin 1.2
AST 25
ALT 20
Alkaline Phosphatase 93
Vital Signs:
Vital Signs
Temp Pulse Resp BP Pulse Ox
97.0 F 103 18 123/86 96
02/11/24 11:00 02/11/24 11:00 02/11/24 11:00 02/11/24 11:00 02/11/24 11:00
I&O
02/10/24 02/11/24 02/12/24
06:59 06:59 06:59
Intake Total 4240 / 4365 2074 / 2074
Output Total 1665 / 1665 770 / 770
Balance 2575 / 2700 1305 / 1305
Physical Exam
-
General: No Apparent Distress
HEENT: Normocephalic and Atraumatic
Respiratory: Negative Wheezes or Rales
Cardiac: Regular Rhythm and S1/S2
GI: Soft and Nontender
Genito-urinary: No Costovertebral Tender
Musculoskeletal: No Edema
Neuro: AO x 3
Hematologic / Lymphatic: No Lymphadenopathy
Psych: Calm
Data Reviewed
-
Total Time Spent with Patient (in minutes): 41
Labs: Labs Reviewed by me
--- NOTE | 2024-02-11 14:37 | OR.RPT ---
Addendum entered and electronically signed by David Iverson MD 02/11/24 15:10:
Date of operation should read 02/09/2024
Original Note:
Operative Report
Operative Report
Patient Name: Tenzin Barr
: 1965
Date of Operation: 02/11/2024
Preoperative Diagnosis: Acute cholecystitis
Postoperative Diagnosis: Gangrenous cholecystitis
Procedure(s):
Laparoscopic Cholecystectomy with Cholangiogram
Surgeon(s):
Dr. Iverson
Police Commissioner(s):
None
Anesthesia: General
Estimated Blood Loss: 23 cc
Urine Output: None
Drains/Lines/Implants: None
Specimens:
1. Gallbladder and contents
HPI/Surgical Indications:
This is a 59-year-old male with a history of diabetes who presents with a 2 to 3-day history of nausea vomiting as well as right upper quadrant abdominal pain. Exam, labs and imaging are consistent with acute cholecystitis.
Risks/Benefits/Alternatives were discussed at length, and the patient agreed to proceed with surgery.
Operative Findings: After successful Veress entry, we identified a perforated, gangrenous gallbladder with bile in the right upper quadrant and multi patchy areas of necrosis along the anterior gallbladder wall. After lysing omental adhesions off
of the gallbladder wall the gallbladder was intentionally perforated and drained of thick black bile with a couple of yellow cholesterol stones noted and removed. There we were able to identify the infundibulum fairly quickly, it was readily
apparent we would not be able to identify the structures in the triangle of Calot so a top-down subtotal cholecystectomy was performed leaving the back wall of the gallbladder on the fossa. This was carried down to the infundibulum and the presumed
cystic duct. The cystic artery was identified and ligated with the LigaSure. We then able to identify duct like structure and circumferentially dissected free. Cystic duct was identified and a ductotomy was made. Cholangiogram was performed
which demonstrated no filling defects and normal biliary anatomy. Cystic duct was ligated with a 0 PDS Endoloop. The anterior plate of the gallbladder as well as the remnant of the cystic duct was placed in Endo Catch bag and removed. Right upper
quadrant was generously irrigated with saline until clear. A 19 Maltese round Quang drain was placed in the right upper quadrant through the right lateralmost port and secured to the skin with a 2-0 nylon stitch. Miller was placed at the end of the
case.
Procedure Description:
The patient was brought to the Operating Room and placed in the supine position with one arm tucked. Following uneventful induction of general endotracheal anesthesia, an orogastric tube was placed. The abdomen was prepped and draped in the usual
sterile fashion. A timeout was performed confirming the procedure, consent, and that IV antibiotics were infused and sequential compression devices were confirmed to be on. The abdomen was entered using a left upper quadrant Veress technique
followed by a right upper quadrant 5 mm Optiview trochar. Pneumoperitoneum to 15 mmHg pressure was obtained without difficulty and we confirmed that no injury had occurred during our entry. The patient was positioned in reverse Trendelenberg and
rotated with the right side up slightly. Two 5mm trocars were then placed along the right subcostal margin, and a 12 mm port in the epigastrium. The fundus of the gallbladder was identified and was very distended so the gallbladder was emptied
using a decompressing needle through the fundus of the gallbladder but fairly minimal amount of bile was able to be extracted. A locking grasping forceps was placed on the fundus of the gallbladder where it was then retracted cephalad and to the
right. There were significant omental adhesions to the gallbladder surface which had multiple areas of frankly black necrosis. These adhesions were carefully lysed using LigaSure bipolar energy device. The cystic triangle could not be readily
identified as the area was significantly inflamed so we elected to perform a top-down subtotal cholecystectomy. The gallbladder was intentionally perforated and drained of thick black bile. A few yellow cholesterol stones were identified and
removed. The anterior gallbladder surface was dissected medially and laterally and removed. Now that we are able to get more lateral tension on the gallbladder and identify the cystic duct opening we were able to dissect the cystic triangle more
safely and get around the cystic duct. A cholangiocatheter on an Franco clamp was inserted into the cystic duct. A C-arm was draped and brought into the field. Initial run demonstrated some leakage however our second run was successful and noted to
have:
No filling defects in the biliary tree
No significant biliary dilation
Brisk flow of contrast into the duodenum
Normal biliary anatomy
The catheter was then removed and the cystic duct was ligated with a 0 PDS Endoloop. No true cystic artery was identified during our dissection. We did remove some parts of the remaining gallbladder wall which was stained black with bile however
it was significantly fused to the underlying liver bed so instead tissue was fulgurated to minimize bleeding. The surgical field was inspected and excellent hemostasis was obtained. The gallbladder was extracted through the 12 mm trocar site using
an endocatch bag. Given the degree of contamination a 19 Maltese round Quang drain was introduced through the lateralmost right upper quadrant port and passed across our field. This was secured at the skin with a 2-0 nylon stitch. The abdomen was
again irrigated and excellent hemostasis was assured. All remaining trocars were then removed and the pneumoperitoneum was evacuated. The 12 mm trocar site was closed using a 0 PDS suture. All trocar sites were closed at the skin level using 4-0
Monocryl followed by Dermabond. Given his hypotension intraoperatively a Miller was placed at the end of the case. Overall, the patient tolerated the procedure well and was taken to the PACU and then the ICU in stable condition for postoperative
monitoring.
I was the attending physician and performed the procedure with no assistance. I was present for all portions of the case
David Iverson MD
[2024-02-11 16:25] LABS: Glucose - Point of Care 179 mg/dl (70-99)
[2024-02-11 17:43] LABS: Glucose - Point of Care 125 mg/dl (70-99)
[2024-02-11] MEDS: LOVENOX 40 MG SC (17:49)
[2024-02-11 21:32] LABS: Glucose - Point of Care 94 mg/dl (70-99)
[2024-02-11] MEDS: DESYREL 150 MG PO (21:32)
--- NOTE | 2024-02-12 04:53 | DOWNTIME ---
There was a [employer] Client Commercial Director Downtime on 02/12/2024 from 0100 to 02/12/2024 at 0439. Downtime documentation of patient's care, including medication administrations, has been reconciled in the electronic record per guidelines. Refer to the
patient's paper chart under the miscellaneous tab to see printed paper medication records and downtime forms.
[2024-02-12 04:58] VITALS: BP 122/84
[2024-02-12] MEDS: ZOSYN 50 IV ×2 (05:18→09:04)
[2024-02-12 07:16] VITALS: BP 150/99
[2024-02-12 08:30] LABS: Glucose - Point of Care 82 mg/dl (70-99)
[2024-02-12 08:41] LABS: % Basophils 0.2 % (0-2); % Immature Granulocytes 0.5 % (0-0.5); % Lymphocytes 29.4 % (20.5-51.1); % Monocytes 7.2 % (1.7-9.3); % Neutrophils 61.7 % (42.2-75.2); Absolute Eosinophils 0.1 10^3/uL (0-0.7); Absolute Immature Granulocytes 0.1 10^3/uL (0-0.05); Absolute Lymphocytes 3.6 10^3/uL (1.2-3.4); Absolute Monocytes 0.9 10^3/uL (0.1-0.6); Absolute Neutrophils 7.5 10^3/uL (1.4-6.5); Hematocrit 51.9 % (39.0-52.0); Hemoglobin 16.8 g/dL (13.0-18.0); Mean Corp Hgb Conc. 32.4 g/dL (33.0-37.0); Mean Corpuscular Hgb 26.8 pg (27.0-31.0); Mean Corpuscular Volume 82.6 fL (80.0-94.0); Mean Platelet Volume 9.9 fL (7.4-10.4); Nucleated Red Blood Cells % 0 % (-); Platelet Count 283 10^3/uL (130-400); Red Blood Cell Count 6.28 10^6/uL (4.70-6.10); Red Cell Dist. Width 14.6 % (11.5-14.5); White Blood Cell Count 12.2 10^3/uL (4.8-10.8)
[2024-02-12] MEDS: PROTONIX 40 MG PO (09:02)
[2024-02-12] MEDS: LEXAPRO 20 MG PO (09:03)
[2024-02-12] MEDS: NON-FORMULARY ITEM 1.5 MG PO (09:03)
[2024-02-12] MEDS: AMARYL 2 MG PO (09:03)
[2024-02-12] MEDS: GLUCOPHAGE 1000 MG PO (09:03)
[2024-02-12] MEDS: NEURONTIN 300 MG PO (09:03)
[2024-02-12] MEDS: ADDERALL 15 MG PO (09:04)
[2024-02-12] MEDS: ROXICODONE 5 MG PO (09:06)
[2024-02-12 09:21] LABS: ALT (SGPT) 23 U/L (0-50); AST (SGOT) 29 U/L (17-59); Albumin 3.2 g/dl (3.5-5.0); Alkaline Phosphatase 73 U/L (38-126); Blood Urea Nitrogen 31 mg/dl (9-20); Calcium 9.1 mg/dl (8.4-10.2); Carbon Dioxide 27 mmol/L (22-30); Chloride 101 mmol/L (98-107); Estimated Creatinine Clearance 113 ml/min; Glucose 69 mg/dl (70-99); Potassium 4.5 mmol/L (3.5-5.1); Sodium 135 mmol/L (135-145); Total Bilirubin 1.2 mg/dl (0.2-1.3); eGFR > 60.00
--- NOTE | 2024-02-12 10:50 | W.PN.HOSP.TC ---
Today's Communication/Plan
-
dc to home VN
Assessment / Plan
Assessment / Plan
Assessment:
Early sepsis (tachycardia, leukocytosis) POA
Acute calculous cholecystitis
- CT: cholelithiasis and acute cholecystitis
- s/p lap shaista with necrotic perforated gallbladder noted intraop 02/08
- DEMETRIA in place
- continue regular diet
- dc on Augmentin x 4 more days
- pain control, anti-emetics
- GS f/u in office in 7-10 days
Acute hypoxic respiratory insufficiency
- wean O2
- likely atelectasis
- no evidence of CHF
AMAN, likely driven by acute process of cholecystitis, sepsis
Hyponatremia
- cap IVF
- bladder scans
NIDDM with neuropathy
- resume Metformin, Glimepiride
- resume Gabapentin
- continue SSI
- A1c 6.3%
Hx of headaches (migraines)
ADD
Depression
Insomnia
- continue Lexapro/Trazodone
- continue Dextroamphetamine/amphetamine combo
- continue Vraylar
DVT ppx: SCDs
Code: Full
More than 30 minutes spent in discharge including
Final examination of the patient
Summarizing hospital stay
Instructions for continuing care to all relevant caregivers
Preparation of discharge records, prescriptions, and referral forms
Total time spent (in minutes): 42
Anticipated Discharge: Today
Subjective/Interval History
-
Date of Service: February 12, 2024
denies any complaints
ambulated well, no hypoxia
tolerating diet
Objective Data
-
Labs:
Laboratory Results
02/12/24
07:23
WBC 12.2 H
Hgb 16.8
Hct 51.9
Plt Count 283
Sodium 135
Potassium 4.5
Chloride 101
Carbon Dioxide 27
BUN 31 H
Creatinine 1.0
Glucose 69 L
Calcium 9.1
Total Bilirubin 1.2
AST 29
ALT 23
Alkaline Phosphatase 73
Vital Signs:
Vital Signs
Temp Pulse Resp BP Pulse Ox
98 F 96 18 150/99 96
02/12/24 07:16 02/12/24 07:16 02/12/24 07:16 02/12/24 07:16 02/12/24 07:16
I&O
02/11/24 02/12/24 02/13/24
06:59 06:59 06:59
Intake Total 2075 / 2075 560 / 560
Output Total 770 / 770 340 / 340
Balance 1305 / 1305 220 / 220
Physical Exam
-
General: No Apparent Distress
HEENT: Normocephalic and Atraumatic
Respiratory: Clear to Auscultation; Negative Wheezes or Rales
Cardiac: Regular Rhythm and S1/S2
GI: Soft and Nontender
Musculoskeletal: No Edema
Neuro: AO x 3
Hematologic / Lymphatic: No Lymphadenopathy
Psych: Calm
Data Reviewed
-
Total Time Spent with Patient (in minutes): 42
Labs: Labs Reviewed by me
--- NOTE | 2024-02-12 10:52 | W.PN.GS2 ---
Today's Communication / Plan
-
OK for DC homw with drain and 4 days PO abx
Assessment / Plan
-
59 yo DM male presenting with ACC now POD #3 lap shaista with necrotic perforated gallbladder noted intraop.
AFVSS, mild tachycardia persists. Hypotension resolved with IVF boluses.
Leukocytosis present but trending down
LFT's WNL
AMAN likely prerenal, much improved/resolved with IVF
Tolerating diabetic diet
DEMETRIA left in place post operatively with expected bilious outputs on POD#1 given operative findings. Currently non-bilious.
Concern for pulmonary edema based on CXR from 02/08, reports of SOB and supplemental O2 needs
--Cont diabetic diet
--Continue DEMETRIA drain --> plan to keep upon DC and Dr Iverson will remove in the office next week
--Continue ABX, tend CBC
--CXR and pulm management per Hospitalist
--PPI for GI
--Lovenox for DVT
--OK for DC from surg standpoint with additional 4 days PO abx
--Pls call with ?s
Subjective Data
-
Date of Service: February 12, 2024
AFVSS, pain controlled, ambulating, ирина PO, voiding
Objective Data
-
Intake and Output
02/11/24 02/12/24 02/13/24
06:59 06:59 06:59
Intake Total 2074 / 2074 560 / 560
Output Total 770 / 770 340 / 340
Balance 1305 / 1305 220 / 220
Intake:
Oral fluids 1200 / 1200 460 / 460
IV fluids (Total) 875 / 875 0 / 0
Nss 1,000 ml @ 125 mls/hr IV . 87
Q8H PARAG Rx#:[id number]
IV piggybacks 100 / 100
Output:
Drain Output (Total) 120 / 120 340 / 340
Right Lower Abdomen Tono- 120 / 120 340 / 340
Michael
Urine, Miller 350 / 350
Urine, Voided 300 / 300
Other:
Number of approximated SMALL 1
amounts of urine
Number of approximated MODERATE 2 1
amounts of urine
Vital Signs
Temp Pulse Resp BP Pulse Ox
98 F 96 18 150/99 96
02/12/24 07:16 02/12/24 07:16 02/12/24 07:16 02/12/24 07:16 02/12/24 07:16
Lab Results
02/12/24 07:23
02/12/24 07:23
Calcium 9.1 mg/dl (8.4-10.2) 02/12/24 07:23
Phosphorus 4.3 mg/dl (2.5-4.5) 02/10/24 03:29
Magnesium 2.2 mg/dl (1.6-2.3) 02/10/24 03:29
Total Bilirubin 1.2 mg/dl (0.2-1.3) 02/12/24 07:23
AST 29 U/L (17-59) 02/12/24 07:23
ALT 23 U/L (0-50) 02/12/24 07:23
Alkaline Phosphatase 73 U/L (38-126) 02/12/24 07:23
Total Protein 6.0 g/dl (6.3-8.2) L 02/12/24 07:23
Albumin 3.2 g/dl (3.5-5.0) L 02/12/24 07:23
Physical Exam
-
Gen: NAD
Abd: soft, approp ttp, incisions cdi with expected ecchymosis, drain serous (non-bilious)
--- NOTE | 2024-02-12 10:57 | W.DS.TRANS ---
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
-
Discharge Instructions:
Discharge Diagnosis/Procedures Acute calculous cholecystitis - lap shaista on
14
Diet Regular
Activity No strenuous activity
Bathing Restrictions OK to Shower
Other Services VN
Instructions: Tono-Michael Drain
How to Keep Track of Your Drainage
Stand-Alone Forms:
Changes to Home Medications: No
Discharge Medications:
DC Medications w/original date entered in [employer]
escitalopram oxalate 20 mg tablet 20 mg PO DAILY Depression 07/03/20
gabapentin 300 mg capsule 300 mg PO TID NEUROPATHY 07/03/20
metformin 1,000 mg tablet 1,000 mg PO BID Diabetes 07/03/20
cariprazine 1.5 mg capsule (Vraylar) 1.5 mg PO DAILY Depression 02/08/24
dextroamphetamine-amphetamine 15 mg tablet 7.5 mg PO DAILY@1300 ADD 02/08/24
dextroamphetamine-amphetamine 15 mg tablet 15 mg PO DAILY ADD 02/08/24
glimepiride 2 mg tablet 2 mg PO DAILY Diabetes 02/08/24
trazodone 150 mg tablet 150 mg PO HS Depression 02/08/24
acetaminophen 325 mg tablet 650 mg (2 x 325 mg) PO Q4HPRN PRN mild pain/SOLIZ/temp> 100.4F #30 tabs 02/12/24
amoxicillin 875 mg-potassium clavulanate 125 mg tablet 1 tab PO BID #8 tabs 02/12/24
oxycodone 5 mg tablet 5 mg PO Q4HPRN PRN moderate pain #10 tabs 02/12/24
sennosides 8.6 mg-docusate sodium 50 mg tablet (Stool Softener-Stimulant Laxative) 1 tab PO BIDPRN PRN constipation #30 tabs 02/12/24
Home Medication Changes
Pending Results: No
Total time spent discharging patient (in min): 42
--- NOTE | 2024-02-12 11:05 | PN.CDI ---
CDI
- -
CDI:
Physician Documentation Request
Admit Date: 02/08/24 18:03
Dear Doctor Kishor,
Patient underwent Cholecystectomy with cholangiogram and was found to have a 'perforated, gangrenous gallbladder with bile in the right upper quadrant'
Please clarify the following:
Peritonitis was present
Peritonitis was not present
Other
Use of terms such as suspected, likely, concern for, or probable (associated with a specific diagnosis that is being evaluated, monitored, or treated as if it exists) are acceptable and can be coded in the inpatient setting, when documented at the
time of discharge.
Thank you,
Yanique Mart RN, BSN
CDI Specialist
tiger text
Please use your independent medical judgment in providing your response.
[2024-02-12 11:19] VITALS: BP 126/89
--- NOTE | 2024-02-12 11:42 | CM ---
Reviewed the chart notes. The patient is being discharged to home today with VN services. Patient's spouse to provide transportation. CM continues to be available to patient/family and is monitoring medical plan for needs at discharge.
Plan: Discharge to home with VN services.
== END 2024-02-12 12:47 | disposition home health service (06) | DRG 853 ==
LOC: 2 SOUTH 18:03
PROVIDERS: Registered Nurse; ADMITTING PHYSICIAN Internal Medicine; CONSULT PHYSICIAN Surgery; EMERGENCY PHYSICIAN Emergency Medicine; FAMILY PHYSICIAN Family Medicine; OTHER PHYSICIAN Internal Medicine Critical Care Medicine
PROC: BF532Z0 Other Imaging of Gallbladder and Bile Ducts using Fluorescing Agent, Intraoperative (ICD-10-PCS; 2024-02-11)
PROC: 0FT44ZZ Resection of Gallbladder, Percutaneous Endoscopic Approach (ICD-10-PCS; 2024-02-11)
DX: A41.9 Sepsis, unspecified organism (principal); K65.9 Peritonitis, unspecified; E87.1 Hypo-osmolality and hyponatremia; K80.00 Calculus of gallbladder with acute cholecystitis without obstruction; N17.9 Acute kidney failure, unspecified; J98.11 Atelectasis; F17.200 Nicotine dependence, unspecified, uncomplicated; E11.40 Type 2 diabetes mellitus with diabetic neuropathy, unspecified; Z79.4 Long term (current) use of insulin; E11.65 Type 2 diabetes mellitus with hyperglycemia; F32.A Depression, unspecified; G47.00 Insomnia, unspecified; I10 Essential (primary) hypertension; E78.00 Pure hypercholesterolemia, unspecified; K82.A1 Gangrene of gallbladder in cholecystitis; D75.1 Secondary polycythemia; R09.02 Hypoxemia; R06.89 Other abnormalities of breathing
CPT/HCPCS: 88304; 71045; 71046; 71101; 74177; 74300; 76000; 80053; 81003; 81015; 82962; 83036; 83735; 84100; 85025; 85379; 85610; 85730; 87040; 87070; 87086; 87147; 87176; 87186; 87205; 88342; 93005; 96361; 96374; 96375; 96376; 99285; Q9967

== ENCOUNTER 2024-08-25 06:16 | Day surgery (SDC) | payer BC, SELFPAY ==
[2024-08-21 13:18] VITALS: BMI 32.5
[2024-08-25] VITALS (11 sets, daily range): BP systolic 94–135; BP diastolic 66–91; BMI 32.5
[2024-08-25 09:42] LABS: Glucose - Point of Care 121 mg/dl (70-99)
[2024-08-25] MEDS: CELEBREX 200 MG PO (09:53)
[2024-08-25 13:03] LABS: Glucose - Point of Care 140 mg/dl (70-99)
== END 2024-08-25 14:07 | disposition home or self-care (01) ==
LOC: SDS 06:16
PROVIDERS: ATTENDING PHYSICIAN Orthopaedic Surgery; FAMILY PHYSICIAN Family Medicine
PROC: 0PSJ04Z Reposition Left Radius with Internal Fixation Device, Open Approach (ICD-10-PCS; 2024-08-25)
DX: S52.572A Other intraarticular fracture of lower end of left radius, initial encounter for closed fracture (principal); W18.30XA Fall on same level, unspecified, initial encounter
CPT/HCPCS: 25609; 36415; 82962; 93005; C1713

== ENCOUNTER → 2024-09-04 14:23 | Outpatient (REF) | payer BC, OTHER, SELFPAY ==
[2024-09-04 15:24] LABS: ALT (SGPT) 15 U/L (0-50); AST (SGOT) 20 U/L (17-59); Albumin 4.2 g/dl (3.5-5.0); Alkaline Phosphatase 92 U/L (38-126); Blood Urea Nitrogen 19 mg/dl (9-20); Calcium 9.7 mg/dl (8.4-10.2); Carbon Dioxide 23 mmol/L (22-30); Chloride 104 mmol/L (98-107); Glucose 122 mg/dl (70-99); Potassium 4.7 mmol/L (3.5-5.1); Sodium 140 mmol/L (135-145); Total Bilirubin 0.9 mg/dl (0.2-1.3); Total Protein 7.1 g/dl (6.3-8.2); eGFR > 60.00
== END ==
LOC: RAD 14:23
PROVIDERS: ATTENDING PHYSICIAN Family Medicine
DX: R06.02 Shortness of breath (principal); R07.9 Chest pain, unspecified; Z01.812 Encounter for preprocedural laboratory examination
CPT/HCPCS: 36415; 71260; 80053; Q9967